=== PATIENT | female | born 1960 | race Caucasian/White ===

== ENCOUNTER 2023-05-04 12:51 | Outpatient (CLI) | payer MEDICARE, MEDICAID ==
[~2023-05-04 12:51] MED LIST: BARIUM SULFATE 340 ML SUSP.RECON***PROCEDURE AREA ONLY**DONT ENTER PO ONE
== END 2023-05-04 23:59 | disposition home or self-care (01) ==
LOC: RAD 12:51
PROVIDERS: ATTEND Nurse Practitioner Family
DX: I69.391 Dysphagia following cerebral infarction (principal); R13.12 Dysphagia, oropharyngeal phase; R13.14 Dysphagia, pharyngoesophageal phase; R49.0 Dysphonia; R47.1 Dysarthria and anarthria; K21.9 Gastro-esophageal reflux disease without esophagitis
CPT/HCPCS: 74230